=== PATIENT | female | born 1945 | race Caucasian/White ===

== ENCOUNTER 2019-06-21 05:37 | Day surgery (SDC) | payer MEDICARE, OTHER ==
[2019-06-20 17:05] LABS: BASOPHILS % (AUTO) 0.6 % (0.0-5.0); HEMATOCRIT 41.1 % (36-48); LYMPHOCYTES % (AUTO) 21.9 % (21.0-51.0); MEAN CORPUSCULAR HEMOGLOBIN 32.1 pg (27.0-33.0); MEAN CORPUSCULAR HGB CONC 34.7 g/dL (32.0-36.0); MEAN CORPUSCULAR VOLUME 92.7 fL (79-99); MONOCYTES % (AUTO) 7.1 % (3.0-13.0); NEUTROPHILS % (AUTO) 69.4 % (40.0-77.0); PLATELET COUNT (AUTO) 229 K/uL (130-400); RED BLOOD CELL COUNT(AUTO) 4.44 MIL/uL (4.00-5.50); WHITE BLOOD COUNT (AUTO) 9.6 K/uL (4.8-10.8)
[2019-06-20 17:07] VITALS: BP 152/81
[2019-06-20 17:30] LABS: CREATININE 0.8 mg/dL (0.5-1.5); POTASSIUM 4.3 mmol/L (3.5-5.1)
[2019-06-21] VITALS (19 sets, daily range): BP systolic 103–151; BP diastolic 52–73
[~2019-06-21] VITALS: Ht 168.9 cm; Wt 65.6 kg
[~2019-06-21 05:37] MED LIST: SIMV-43 PO
[2019-06-21] MEDS ORDERED: LACTATED RINGERS 1000ML 1,000 ML IV SCH (06:00)
--- NOTE | 2019-06-21 07:25 | NUR ---
PUPILS pt has bilateral lens implants Addendum: 06/21/19 at 0854 by AGUSTIN CARLSON RN RN Amended: Links added.
[2019-06-21] MEDS ORDERED: LIDOCAINE PF 2% 5ML ABBOJECT ONE (09:00)
[2019-06-21] MEDS ORDERED: PROPOFOL 10 MG/ML 20ML VIAL IV ONE (09:00)
[2019-06-21] MEDS ORDERED: MIDAZOLAM HCL 1 MG/ML 2ML VIAL ONE (09:01)
[2019-06-21] MEDS ORDERED: FENTANYL CITRATE PF 50 MCG/1 ML 2ML VIAL ONE (09:01)
[2019-06-21] MEDS ORDERED: BACITRACIN 28.4 GM OINT TP ONE (09:33)
[2019-06-21] MEDS ORDERED: MEPERIDINE-PF 25 MG/ML SYG ONE (10:21)
--- NOTE | 2019-06-21 11:50 | NUR ---
Pt discharged home. Tolerating fluids well, ambulating well. Denies any severe pain, nausea or dizziness. Dressing (ob pad) with very minimal light red small dots. Dressing changed. Prescription given to pt. Pt also sent home with Bacitracin ointment, spare ob pads, and wet wipes. Pt and spouse deny any further questions at this time.
== END 2019-06-21 11:50 | disposition home or self-care (01) ==
LOC: DAH 05:37
PROVIDERS: ATTEND Obstetrics & Gynecology
DX: C51.9 Malignant neoplasm of vulva, unspecified (principal); E78.5 Hyperlipidemia, unspecified; Z88.3 Allergy status to other anti-infective agents; Z98.49 Cataract extraction status, unspecified eye; Z98.890 Other specified postprocedural states; Z96.641 Presence of right artificial hip joint; Z79.899 Other long term (current) drug therapy; Z83.3 Family history of diabetes mellitus; Z82.49 Family history of ischemic heart disease and other diseases of the circulatory system
CPT/HCPCS: 11622; 36415; 80048; 85025; 86850; 86900; 86901; 88305; A4215; A4221; A4222; A4223; A4351; A4606; A4663; A6260; J2001; J2175; J2250; J2704; J3010; J7120